=== PATIENT | male | born 1960 | race Caucasian/White ===

== ENCOUNTER 2020-10-04 05:45 | Day surgery (SDC) | payer MEDICAID, SELFPAY ==
[~2020-10-04] VITALS: Ht 177.8 cm; Wt 90.7 kg
[~2020-10-04 05:45] MED LIST: MORP100T4 PO; PREG150C PO
[2020-10-04] MEDS ORDERED: SIMETHICONE 40 MG/0.6 ML ML ONE (07:18)
[2020-10-04] MEDS ORDERED: METOCLOPRAMIDE HCL 10 MG/2 ML VIAL IVP ONE (08:02)
[2020-10-04] MEDS ORDERED: NS IRRIG SOLN 1000 ML IR ONE (08:02)
[2020-10-04] MEDS ORDERED: ONDANSETRON HCL 4 MG/2 ML VIAL IVP ONE (08:02)
[2020-10-04] MEDS ORDERED: PROPOFOL 200MG/ 20ML VIAL (DIPRIVAN) IV ONE (08:02)
[2020-10-04] MEDS ORDERED: KETAMINE HCL 500 MG/10 ML VIAL IVP ONE (08:02)
[2020-10-04] MEDS ORDERED: MIDAZOLAM HCL 5 MG/5 ML VIAL IVP ONE (08:02)
[2020-10-04] MEDS ORDERED: NS 1000 ML IV.SOLN IV ONE (08:02)
[2020-10-04] MEDS ORDERED: GLYCOPYRROLATE 0.2 MG/ML VIAL IJ ONE (08:02)
[2020-10-04] MEDS ORDERED: LIDOCAINE 2%, 20 ML MDV INJ ONE (08:02)
[2020-10-04 10:30] VITALS: BP_SYST 133
== END 2020-10-04 10:13 | disposition home or self-care (01) ==
LOC: SMU 05:45 → SDS 05:45
PROVIDERS: ATTEND Internal Medicine
DX: K92.1 Melena (principal); K29.50 Unspecified chronic gastritis without bleeding; K57.30 Diverticulosis of large intestine without perforation or abscess without bleeding; K64.8 Other hemorrhoids; K83.8 Other specified diseases of biliary tract; Z87.891 Personal history of nicotine dependence; Z90.49 Acquired absence of other specified parts of digestive tract; Z86.010 Personal history of colon polyps; Z79.899 Other long term (current) drug therapy; Z20.828 Contact with and (suspected) exposure to other viral communicable diseases
CPT/HCPCS: 43239; 45380; 87081; 88305; 88312; 88313; 93005; J2001; J2250; J2405; J2704; J2765; J3490; J7030; U0003